=== PATIENT | female | born 1950 | race Caucasian/White ===

== ENCOUNTER → 2017-02-08 | Outpatient (CLI) | payer MEDICARE ==
[2017-02-08 13:15] LABS: Blood Urea Nitrogen 13 mg/dL (7-17); Non-African American GFR(MDRD) >60 (>60 ml/min/1.73 sqM)
--- NOTE | 2017-02-08 13:48 | CT ---
EXAMINATION TYPE: CT soft tissue neck w con DATE OF EXAM: 02/08/2017 1:40 PM COMPARISON: NONE HISTORY: Neck mass, esophagus deviating CT DLP: 754 mGycm Automated exposure control for dose reduction was used. CONTRAST: CT scan of the neck is performed following with IV Contrast, patient injected with 100 mL of Omnipaqu e 300. Axial images are obtained, coronal and sagittal reformatted images are reviewed. FINDINGS: There are emphysematous changes within the lungs. Visualized intracranial structures appear normal. The paranasal sinuses and mastoids appear clear. Vertebral body height and alignment remain normal. Atlantoaxial relationships are normal. There is no significant degenerative change. There is no obvious protrusion. The major salivary glands are unremarkable. The parapharyngeal, oropharyngeal and laryngeal soft tissues are normal. There is a 4.4 x 3.3 x 2.9 cm left-sided thyroid mass which is heterogenous. This is displacing the t rachea towards the right. The left side of the thyroid is also mildly heterogenous. There is no significant cervical or supraclavicular adenopathy. IMPRESSION: 1. Large left left-sided thyroid nodule with heterogenous right lobe of the thyroid. Thyroid ultrasou nd would BE suggested. 2. Mild emphysematous changes within the lungs.
== END | disposition home or self-care (01) ==
LOC: RADCTMAIN 12:36
PROVIDERS: ATTEND Internal Medicine
DX: E04.1 Nontoxic single thyroid nodule (principal)
CPT/HCPCS: 82565; 84520; 70491; 36415; Q9967

== ENCOUNTER → 2018-07-11 | Outpatient (CLI) | payer MEDICARE ==
--- NOTE | 2018-07-12 12:09 | MM ---
Reason for exam: screening (asymptomatic). Last mammogram was performed 2 years and 7 months ago. History: Patient is postmenopausal. Family history of breast cancer in aunt. Took estrogen for 3 years. Physical Findings: A clinical breast exam by your physician is recommended on an annual basis and results should be correlated with mammographic findings. MG 3D Screening Mammo W/Cad Bilateral CC and MLO view(s) were taken. Prior study comparison: December 20, 2015, bilateral MG screening mammo w CAD. September 18, 2013, bilateral digital screening mammo w/CAD. The breast tissue is heterogeneously dense. This may lower the sensitivity of mammography. No suspicious abnormality. No significant changes when compared with prior studies. ASSESSMENT: Negative, BI-RAD 1 RECOMMENDATION: Routine screening mammogram of both breasts in 1 year.
== END | disposition home or self-care (01) ==
LOC: RADMAMWWP 16:32
PROVIDERS: ATTEND Internal Medicine
DX: Z12.31 Encounter for screening mammogram for malignant neoplasm of breast (principal)
CPT/HCPCS: 77063; 77067

== ENCOUNTER 2019-03-02 15:09 | Observation (INO) | payer MEDICARE ==
[2019-03-02 15:14] VITALS: RESP 18
[2019-03-02] MEDS ORDERED: MECLIZINE 12.5 MG TAB PO STA (15:23)
[2019-03-02] MEDS ORDERED: ACETAMINOPHEN TAB 500 MG TAB PO STA (15:23)
--- NOTE | 2019-03-02 15:27 | ED ---
Head Injury HPI - General Chief complaint: Head Injury Stated complaint: Fall/head injury Time Seen by Provider: 03/02/19 15:16 Source: patient, RN notes reviewed, old records reviewed Mode of arrival: ambulatory Limitations: no limitations - History of Present Illness Initial comments: This is a 68-year-old female presents emergency department today after tripping over a hose and table on her porch. She fell back striking her head on the cement. Patient states that she has a large swelling over the posterior scalp. Patient states that she also had her left elbow but report no pain with any range of motion. Patient reports that today she feels dizzy, light is making her head feel worse. She does not have any Motrin or Tylenol. She is on a daily baby aspirin. Patient has history of cardiac stenting. She is a former emergency room RN. - Related Data Allergies/Adverse reactions: Allergies Allergy/AdvReac Type Severity Reaction Status Date / Time omeprazole [From Prilosec] Allergy Rash/Hives Verified 03/02/19 15:15 Sulfa (Sulfonamide Allergy Rash/Hives Verified 03/02/19 15:15 Antibiotics) Review of Systems ROS Statement: Those systems with pertinent positive or pertinent negative responses have been documented in the HPI. ROS Other: All systems not noted in ROS Statement are negative. Past Medical History Past Medical History: Diabetes Mellitus, Hyperlipidemia, Hypertension History of Any Multi-Drug Resistant Organisms: None Reported Past Surgical History: Heart Catheterization With Stent, Hysterectomy Past Psychological History: No Psychological Hx Reported Smoking Status: Never smoker Past Alcohol Use History: None Reported Past Drug Use History: None Reported General Exam - General Exam Comments Initial Comments: 68-year-old female. Alert and oriented 3. Has her head covered with Tylenol and ice over her scalp. Limitations: no limitations General appearance: alert, in no apparent distress Head exam: Present: normocephalic, normal inspection. Absent: atraumatic (abrasion and a large hematoma over the posterior scalp.) Eye exam: Present: normal appearance, PERRL, EOMI, nystagmus (over lateral left gaze). Absent: scleral icterus, conjunctival injection, periorbital swelling ENT exam: Present: normal exam, mucous membranes moist Neck exam: Present: normal inspection. Absent: tenderness, meningismus, lymphadenopathy Respiratory exam: Present: normal lung sounds bilaterally. Absent: respiratory distress, wheezes, rales, rhonchi, stridor Cardiovascular Exam: Present: regular rate, normal rhythm, normal heart sounds. Absent: systolic murmur, diastolic murmur, rubs, gallop, clicks GI/Abdominal exam: Present: soft, normal bowel sounds. Absent: distended, tenderness, guarding, rebound, rigid Extremities exam: Present: normal inspection, full ROM, normal capillary refill. Absent: tenderness, pedal edema, joint swelling, calf tenderness Back exam: Present: normal inspection Neurological exam: Present: alert Psychiatric exam: Present: normal affect, normal mood Skin exam: Present: warm Course Vital Signs 03/02/19 03/02/19 15:10 17:10 Temperature 97.7 F Pulse Rate 83 70 Respiratory 18 18 Rate Blood Pressure 162/86 135/61 O2 Sat by Pulse 98 97 Oximetry Medical Decision Making - Medical Decision Making Patient is a 68-year-old female who presents emergency department today for evaluation for head injury. Patient was at a sitting position tripped, and fell backward hitting her head on cement. She has a significant occipital hematoma. She would've nausea and significant dizziness. I attempted to help with patient's concussion-like symptoms with meclizine, Reglan and Benadryl. Patient continues to be significantly dizzy and nauseated postconcussion. Her CT of the brain was negative for any acute cranial process. Patient case discussed with Dr. Sparks who agrees to admit the Patient for intractable vertigo, concussion-like symptoms after head injury. With consult to neurology in the morning. Patient is a former RN and agrees to tthis plan. - Radiology Data Radiology results: report reviewed Negative computed tomography scan of the brain. Occipital scalp hematoma. Minor junk changes in the cervical spine,and fracture. Disposition Clinical Impression: Head injury, Concussion, Dizziness Disposition: ADMITTED IP TO THIS [facility] Condition: Good Is patient prescribed a controlled substance at d/c from ED?: No Referrals: Ray Wan MD [Primary Care Provider] - 1-2 days Time of Disposition: 18:05
--- NOTE | 2019-03-02 15:49 | CT ---
EXAMINATION TYPE: CT brain nel garcia DATE OF EXAM: 03/02/2019 COMPARISON: None HISTORY: Fall with posterior head injury CT DLP: 1342.4 mGycm Automated exposure control for dose reduction was used. TECHNIQUE: CT scan of the head and cervical spine are performed without contrast. FINDINGS: Ventricles have normal size. There is no mass effect nor midline shift. There is no sign of intracranial hemorrhage. The calvarium is intact. There is left occipital scalp hematoma. Cervical vertebra have normal alignment. Posterior elements are intact. There is minor spurring of th e endplates. Facet joints are intact skull base is intact. There is no evidence of cervical spine fra cture. IMPRESSION: Negative CT scan of the brain. Occipital scalp hematoma. Minor degenerative changes in the cervical spine. No fracture.
[2019-03-02] MEDS ORDERED: diphenhydrAMINE 25 MG CAP PO STA (16:33)
[2019-03-02] MEDS ORDERED: METOCLOPRAMIDE 10 MG TAB PO STA (16:33)
[2019-03-02] MEDS ORDERED: KETOROLAC 30 MG/ML 1 ML VIAL IVP PRN ×2 (18:08→18:15)
[2019-03-02] MEDS ORDERED: ACETAMINOPHEN TAB 325 MG TAB PO PRN (18:08)
[2019-03-02] MEDS ORDERED: PROCHLORPERAZINE 5 MG TAB PO PRN (18:08)
[2019-03-02] MEDS ORDERED: IBUPROFEN 400 MG TAB PO PRN (18:08)
[2019-03-02] MEDS ORDERED: NALOXONE 0.4 MG/ML 1 ML VIAL IV PRN (18:08)
[2019-03-02 18:46] LABS: Basophils # (A) 0.1 k/uL (0-0.2); Basophils % (A) 1 %; Eosinophils # (A) 0.2 k/uL (0-0.7); Eosinophils % (A) 2 %; HCT 33.1 % (34.0-46.0); HGB 10.8 gm/dL (11.4-16.0); Lymphocytes # (A) 3.8 k/uL (1.0-4.8); Lymphocytes % (A) 31 %; MCHC 32.5 g/dL (31.0-37.0); MCV 83.1 fL (80.0-100.0); Mean Platelet Volume 7.2; Monocytes # (A) 0.6 k/uL (0-1.0); Monocytes % (A) 5 %; Neutrophils # (A) 7.5 k/uL (1.3-7.7); Neutrophils % (A) 61 %; Platelet Count 325 k/uL (150-450); RBC 3.98 m/uL (3.80-5.40); RDW 14.8 % (11.5-15.5); WBC 12.5 k/uL (3.8-10.6)
[2019-03-02 18:57] LABS: African American GFR (CKD) >90 (>60 ml/min/1.73 sqM); Anion Gap 10 mmol/L; Blood Urea Nitrogen 16 mg/dL (7-17); Calcium 9.3 mg/dL (8.4-10.2); Carbon Dioxide 28 mmol/L (22-30); Chloride 98 mmol/L (98-107); Glucose 109 mg/dL (74-99); Sodium 136 mmol/L (137-145)
[2019-03-02] MEDS ORDERED: IPRATROPIUM-ALBUTEROL 3 ML NEB INHALATION PRN (20:22)
[2019-03-02] MEDS: FAMOTIDINE 20 MG TAB PO SCH (20:29)
[2019-03-02 20:44] VITALS: BMI 35.2
[2019-03-02] MEDS: SODIUM CHLORIDE 0.9% 1,000 ML IV SCH (20:44)
[2019-03-02] MEDS ORDERED: ACETAMINOPHEN TAB 500 MG TAB PO PRN (21:27)
[2019-03-02] MEDS ORDERED: FAMOTIDINE 20 MG TAB PO SCH (21:30)
--- NOTE | 2019-03-02 22:51 | P.HPIM ---
History of Present Illness H&P Date: 03/02/19 Chief Complaint: Head injury 68-year-old female with history of diabetes history of CAD status post stent of years ago hypertension. Patient presented to the hospital after sustaining a fall at home. She reports she was active all day doing yard work and small things around the house. When she eventually tripped over a hose fell and hit her head on a table she thinks she might have lost consciousness for a few seconds very brief of any. Denies any vomiting but felt very weak after the fall couldn't get up. Denies any preceding symptoms to the fall denies any dizziness lightheadedness denies any shortness of breath chest pain or palpitations. She denies any history of falling. Family members heard thought and came to the rescue they helped her up and insisted on going to the hospital to get evaluated she was brought to the hospital by private car. In the ED CT of the head was unremarkable for any intracranial lesions, and showed subcutaneous hematoma Labs showed leukocytosis without focus of infection, mild anemia of 10.8 patient denies any GI bleeding. Patient currently evaluated on the medical floor she feels that she is back to her baseline slightly lightheaded denies any focal neurologic deficit at this point denies any nausea vomiting chest pain trouble breathing abdominal pain Review of Systems Pertinent positives as noted in HPI. All other systems were reviewed and are negative Past Medical History Past Medical History: Diabetes Mellitus, Fibromyalgia, GERD/Reflux, Hyperlipidemia, Hypertension History of Any Multi-Drug Resistant Organisms: None Reported Past Surgical History: Heart Catheterization With Stent, Hysterectomy Past Anesthesia/Blood Transfusion Reactions: No Reported Reaction Date of Last Stent Placement:: 2006 Past Psychological History: No Psychological Hx Reported Smoking Status: Never smoker Past Alcohol Use History: None Reported Past Drug Use History: None Reported - Past Family History Mother Additional Family Medical History / Comment(s): passed at age 57 dx with brain tumor Father Family Medical History: Coronary Artery Disease (CAD) Additional Family Medical History / Comment(s): at 63 Medications and Allergies Home Medications Medication Instructions Recorded Confirmed Type Acetaminophen Tab [Tylenol] 500 mg PO Q8HR PRN 03/02/19 03/02/19 History Aspirin [[place] Aspirin EC] 81 mg PO DAILY 03/02/19 03/02/19 History DULoxetine HCL [Cymbalta] 30 mg PO DAILY 03/02/19 03/02/19 History Enalapril/Hydrochlorothiazide 1 tab PO DAILY 03/02/19 03/02/19 History [Enalapril-Hctz 10-25 mg Tablet] Famotidine [Pepcid] 20 mg PO HS 03/02/19 03/02/19 History Lansoprazole [Prevacid] 30 mg PO DAILY 03/02/19 03/02/19 History Metoprolol Succinate (ER) [Toprol 100 mg PO DAILY 03/02/19 03/02/19 History XL] Potassium Chloride ER [K-Dur 10] 10 meq PO DAILY 03/02/19 03/02/19 History Rosuvastatin [Crestor] 20 mg PO HS 03/02/19 03/02/19 History metFORMIN HCL [Glucophage] 500 mg PO DAILY 03/02/19 03/02/19 History traMADol HCL [Ultram] 1 - 2 tab PO TID 03/02/19 03/02/19 History Allergies Allergy/AdvReac Type Severity Reaction Status Date / Time omeprazole [From Prilosec] Allergy Rash/Hives Verified 03/02/19 19:06 Sulfa (Sulfonamide Allergy Rash/Hives Verified 03/02/19 19:06 Antibiotics) Physical Exam Vitals: Vital Signs Temp Pulse Pulse Resp BP BP Pulse Ox 03/02/19 20:25 98.0 F 67 18 148/80 98 03/02/19 19:30 98.5 F 64 18 125/61 98 03/02/19 17:10 70 18 135/61 97 03/02/19 15:10 97.7 F 83 18 162/86 98 Intake and Output 03/02/19 03/02/19 03/02/19 06:59 14:59 22:59 Other: Weight 77.111 kg Constitutional: No acute distress, conversant, pleasant Eyes: Anicteric sclerae, moist conjunctiva, no lid-lag Pupils equal round reactive to light ENMT: NC/AT Oropharynx clear, no erythema, exudates Neck: Supple, FROM, no masses, or JVD No carotid bruits No thyromegaly Lungs: Clear to auscultation Clear to percussion Normal respiratory effort, no accessory muscle use Cardiovascular: Heart regular in rate and rhythm, No murmurs, gallops, or rubs No peripheral edema Abdominal: Soft Nontender, no guarding, rebound or rigidity Abdomen moving with respiration Normoactive bowel sounds No hepatomegaly, No splenomegaly No palpable mass No abdominal wall hernia noted Skin: Normal temperature, tone, texture, turgor No induration No subcutaneous nodules No rash, lesions No ulcers Extremities: No digital cyanosis No clubbing Pedal pulses intact and symmetrical Radial pulses intact and symmetrical No calf tenderness Psychiatric: Alert and oriented to person, place and time Appropriate affect fair judgement Neuro Muscles Strength 5/5 in all 4 extremities Sensation to light touch grossly present throughout Cranial nerves II-XII grossly intact No focal sensory deficits q no nystagmus, Finger-nose intact heel carter intact Lymphatics: no palpable cervical or supraclavicular , or inguinal lymph nodes Results CBC & Chem 7: 03/02/19 18:26 03/02/19 18:26 Labs: Abnormal Lab Results - Last 24 Hours (Table) 03/02/19 03/02/19 Range/Units 18:26 18:26 WBC 12.5 H (3.8-10.6) k/uL Hgb 10.8 L (11.4-16.0) gm/dL Hct 33.1 L (34.0-46.0) % Sodium 136 L (137-145) mmol/L Glucose 109 H (74-99) mg/dL Assessment and Plan Assessment: 68-year-old female with history of hypertension diabetes admitted under observation with anticipated length of stay less than 48 hours due to concussion and dizziness for monitoring neuro exam overnight after sustaining a mechanical fall at home with questionable loss of consciousness due to head injury Plan: Concussion secondary to mechanical fall Dizziness Neuro exam every 2 hours Monitoring overnight under observation CT of the head showed occipital subcutaneous hematoma Vital signs stable Mild anemia Most recent colonoscopy 2-3 years ago with history of precancerous lesion Continue outpatient follow-up Patient denies GI bleeding Leukocytosis mild No fevers vital signs stable No evidence of focal infection Continue to monitor Chronic conditions hospitalized Hypertension resume home meds GERD Fibromyalgia History of CAD status post stent 12 years ago DVT prophylaxis mechanical Surrogate decision-maker: CODE STATUS: No code Discussed with: Patient, ER, Anticipated discharge: Less than [address]: Home A total of 60 minutes was spent on the care of this complex patient more than 50% of the time was spent in counseling and care coordination.
[2019-03-03] MEDS: SODIUM CHLORIDE 0.9% 1,000 ML IV SCH (03:28)
[2019-03-03 07:10] VITALS: BP 132/71; PULSE 72; TEMP 98.4
[2019-03-03 07:21] LABS: Glucose,Whole Blood 112 mg/dL (75-99)
[2019-03-03] MEDS ORDERED: INSULIN ASPART (NovoLOG) 100 UNIT/ML VIAL SQ SCH (07:30)
[2019-03-03] MEDS: FAMOTIDINE 20 MG TAB PO SCH (08:07)
[2019-03-03] MEDS ORDERED: LISINOPRIL 10 MG TAB PO SCH (09:00)
[2019-03-03] MEDS ORDERED: ASPIRIN 81 MG PO SCH (09:00)
[2019-03-03] MEDS ORDERED: DULoxetine HCL 30 MG CAPSULE.DR PO SCH (09:00)
[2019-03-03] MEDS ORDERED: Lansoprazole [Prevacid] 30 MG PO SCH (09:00)
[2019-03-03] MEDS ORDERED: HYDROCHLOROTHIAZIDE 25 MG TAB PO SCH (09:00)
[2019-03-03] MEDS ORDERED: METOPROLOL SUCCINATE (ER) 100 MG TAB.ER.24H PO SCH (09:00)
--- NOTE | 2019-03-03 09:38 | P.PN ---
Progress Note - Text Progress Note Date: 03/03/19 Consult order received from staff. Spoke with primary team Dr. Muir who rounded on patient this am and stated she had a non-focal exam and dizziness was from concussion and that neuro did not need to see. Recommend outpatient follow- up on possible post-concussive syndrome. Please call with any questions.
--- NOTE | 2019-03-03 09:53 | P.DS ---
Providers Date of admission: 03/02/19 18:14 Expected date of discharge: 03/03/19 Attending physician: Lilia Muir DO Primary care physician: Ray Wan Hospital Course: Discharge Diagnosis: Concussion Dizziness secondary to above Mild anemia GERD Hypertension Dyslipidemia Diabetes mellitus Coronary artery disease Hospital Course: Patient is a 68-year-old female with a past medical history of diabetes, coronary artery disease status post stenting, GERD, hypertension, and dyslipidemia who presented to the ER after a fall with trauma to her head. She blew she may have lost consciousness for a few seconds after striking her head on a table. In the ER she felt very weak and could not get up. She is having dizziness with persistent nausea and vomiting. Despite maximal doses of medications patient was still unable to ambulate on her own. There is concern for severe concussion she was subsequently admitted for observation. She underwent a CT of the brain which showed no acute process and a CT of the head and neck which was unrevealing for fracture. She was therefore admitted for further observation. Her neuro exam remained normal. By the morning after admission her nausea had resolved, her dizziness is greatly improved and only lasted for a few seconds with change in position. Patient seen and examined at bedside. Dizziness much improved, and nausea resolved, no other complaints currently. Vital signs reviewed and stable. General: non toxic, no distress, appears at stated age Derm: warm, dry Head: atraumatic, normocephalic, swelling over the left posterior scalp Eyes: EOMI, no lid lag, anicteric sclera Mouth: no lip lesion, mucus membranes moist Cardiovascular: S1S2 reg, no murmur, positive posterior tibial pulse bilateral, Lungs: CTA bilateral, no rhonchi, no rales , no accessory muscle use Abdominal: soft, nontender to palpation, no guarding, no appreciable organomegaly Ext: no gross muscle atrophy, no edema, no contractures Neuro: CN II-XI intact, muscle strength 5 out of 5 in all 4 extremities, finger to nose within normal limits, [id number] with no normal limits, light touch intact in all 4 extremities, able to ambulate without difficulty, no nystagmus, no tremors Psych: Alert, oriented, appropriate affect A total of 25 minutes of time were spent preparing this complex discharge summary . Pertinent Studies: CT head and neck: Negative CT of the brain, occipital scalp hematoma Patient Condition at Discharge: Good Plan - Discharge Summary New Discharge Prescriptions: Continue DULoxetine HCL [Cymbalta] 30 mg PO DAILY Aspirin [[place] Aspirin EC] 81 mg PO DAILY Acetaminophen Tab [Tylenol] 500 mg PO Q8HR PRN PRN Reason: Pain metFORMIN HCL [Glucophage] 500 mg PO DAILY Rosuvastatin [Crestor] 20 mg PO HS Metoprolol Succinate (ER) [Toprol XL] 100 mg PO DAILY Lansoprazole [Prevacid] 30 mg PO DAILY Famotidine [Pepcid] 20 mg PO HS Potassium Chloride ER [K-Dur 10] 10 meq PO DAILY Enalapril/Hydrochlorothiazide [Enalapril-Hctz 10-25 mg Tablet] 1 tab PO DAILY traMADol HCL [Ultram] 1 - 2 tab PO TID Discharge Medication List Acetaminophen Tab [Tylenol] 500 mg PO Q8HR PRN 03/02/19 [History] Aspirin [[place] Aspirin EC] 81 mg PO DAILY 03/02/19 [History] DULoxetine HCL [Cymbalta] 30 mg PO DAILY 03/02/19 [History] Enalapril/Hydrochlorothiazide [Enalapril-Hctz 10-25 mg Tablet] 1 tab PO DAILY 03/02/19 [History] Famotidine [Pepcid] 20 mg PO HS 03/02/19 [History] Lansoprazole [Prevacid] 30 mg PO DAILY 03/02/19 [History] Metoprolol Succinate (ER) [Toprol XL] 100 mg PO DAILY 03/02/19 [History] Potassium Chloride ER [K-Dur 10] 10 meq PO DAILY 03/02/19 [History] Rosuvastatin [Crestor] 20 mg PO HS 03/02/19 [History] metFORMIN HCL [Glucophage] 500 mg PO DAILY 03/02/19 [History] traMADol HCL [Ultram] 1 - 2 tab PO TID 03/02/19 [History] Follow up Appointment(s)/Referral(s): Ray Wan MD [Primary Care Provider] - 1-2 days Patient Instructions/Handouts: Concussion (DC), Concussion (GEN), Post Concussion Syndrome (ED), Post Concussion Syndrome (GEN) Activity/Diet/Wound Care/Special Instructions: Diet: carb consistent Activity: as tolerated
[2019-03-03] MEDS ORDERED: ATORVASTATIN 40 MG TAB PO SCH (21:00)
== END 2019-03-03 10:24 | disposition home or self-care (01) ==
LOC: EC 15:09 → 4MS4W 18:14
PROVIDERS: ADMIT Internal Medicine; ATTEND Internal Medicine
DX: S06.0X9A Concussion with loss of consciousness of unspecified duration, initial encounter (principal); S00.03XA Contusion of scalp, initial encounter; D64.9 Anemia, unspecified; D72.829 Elevated white blood cell count, unspecified; I10 Essential (primary) hypertension; I25.10 Atherosclerotic heart disease of native coronary artery without angina pectoris; K21.9 Gastro-esophageal reflux disease without esophagitis; M79.7 Fibromyalgia; E78.5 Hyperlipidemia, unspecified; E11.9 Type 2 diabetes mellitus without complications; Z79.82 Long term (current) use of aspirin; Z79.84 Long term (current) use of oral hypoglycemic drugs; Z79.891 Long term (current) use of opiate analgesic; Z79.899 Other long term (current) drug therapy; Z90.710 Acquired absence of both cervix and uterus; Z88.2 Allergy status to sulfonamides; Z88.8 Allergy status to other drugs, medicaments and biological substances; Z95.5 Presence of coronary angioplasty implant and graft; Z87.19 Personal history of other diseases of the digestive system; Y92.008 Other place in unspecified non-institutional (private) residence as the place of occurrence of the external cause; Z82.49 Family history of ischemic heart disease and other diseases of the circulatory system; W01.198A Fall on same level from slipping, tripping and stumbling with subsequent striking against other object, initial encounter
CPT/HCPCS: 96361; 96374; 99285; 36415; 80048; 85025; 72125; 70450; G0378 ×2; J1885

== ENCOUNTER 2020-03-27 11:09 | Emergency (ER) | payer MEDICARE ==
[2020-03-27] MEDS ORDERED: LEVOFLOXACIN 750 MG TAB PO STA (11:50)
--- NOTE | 2020-03-27 12:05 | ED ---
Fever HPI - General Chief Complaint: Fever Stated Complaint: fever/body aches Time Seen by Provider: 03/27/20 11:29 Source: patient, RN notes reviewed Mode of arrival: ambulatory Limitations: no limitations - History of Present Illness Initial Comments: This is a 69-year-old female who presents with complaints of a fever since yesterday waxing and waning also with complaints of a frontal headache which is consistent with previous episodes of sinusitis. She's had body aches. No cough no phlegm production no overt rhinorrhea she is isn't plugged up ears she states has sore throat for 1 day. No dysuria no other complaints of other modifying factors. MD Complaint: fever - Related Data Home Medications Medication Instructions Recorded Confirmed Acetaminophen Tab [Tylenol] 500 mg PO Q8HR PRN 03/02/19 03/02/19 Aspirin [[place] Aspirin EC] 81 mg PO DAILY 03/02/19 03/02/19 DULoxetine HCL [Cymbalta] 30 mg PO DAILY 03/02/19 03/02/19 Enalapril/Hydrochlorothiazide 1 tab PO DAILY 03/02/19 03/02/19 [Enalapril/Hydrochlorothiazide 10-25 mg Tablet] Famotidine [Pepcid] 20 mg PO HS 03/02/19 03/02/19 Lansoprazole [Prevacid] 30 mg PO DAILY 03/02/19 03/02/19 Metoprolol Succinate (ER) [Toprol 100 mg PO DAILY 03/02/19 03/02/19 XL] Potassium Chloride ER [K-Dur 10] 10 meq PO DAILY 03/02/19 03/02/19 Rosuvastatin [Crestor] 20 mg PO HS 03/02/19 03/02/19 metFORMIN HCL [Glucophage] 500 mg PO DAILY 03/02/19 03/02/19 traMADol HCL [Ultram] 1 - 2 tab PO TID 03/02/19 03/02/19 Previous Rx's Medication Instructions Recorded Levofloxacin [Levaquin] 500 mg PO DAILY 3 Days #9 tab 03/27/20 Allergies Allergy/AdvReac Type Severity Reaction Status Date / Time omeprazole [From Prilosec] Allergy Rash/Hives Verified 03/27/20 11:14 Sulfa (Sulfonamide Allergy Rash/Hives Verified 03/27/20 11:14 Antibiotics) Review of Systems ROS Statement: Those systems with pertinent positive or pertinent negative responses have been documented in the HPI. ROS Other: All systems not noted in ROS Statement are negative. Past Medical History Past Medical History: Diabetes Mellitus, Fibromyalgia, GERD/Reflux, Hyperlipidemia, Hypertension History of Any Multi-Drug Resistant Organisms: None Reported Past Surgical History: Heart Catheterization With Stent, Hysterectomy Past Anesthesia/Blood Transfusion Reactions: No Reported Reaction Date of Last Stent Placement:: 2006 Past Psychological History: No Psychological Hx Reported Past Alcohol Use History: None Reported Past Drug Use History: None Reported - Past Family History Mother Additional Family Medical History / Comment(s): passed at age 57 dx with brain tumor Father Family Medical History: Coronary Artery Disease (CAD) Additional Family Medical History / Comment(s): at 63 General Exam - General Exam Comments Initial Comments: This is a well-developed alert oriented 3 female Limitations: no limitations General appearance: alert, in no apparent distress Head exam: Present: atraumatic, normocephalic, normal inspection Eye exam: Present: normal appearance, PERRL, EOMI. Absent: scleral icterus, conjunctival injection, periorbital swelling ENT exam: Present: mucous membranes moist, other (Boggy nasal mucosa with some dullness of the TMs.) Neck exam: Present: normal inspection. Absent: tenderness, meningismus, lymphadenopathy Respiratory exam: Present: normal lung sounds bilaterally. Absent: respiratory distress, wheezes, rales, rhonchi, stridor Cardiovascular Exam: Present: regular rate, normal rhythm, normal heart sounds. Absent: systolic murmur, diastolic murmur, rubs, gallop, clicks GI/Abdominal exam: Absent: distended, tenderness, guarding, rebound, rigid Extremities exam: Present: normal inspection, full ROM, normal capillary refill. Absent: tenderness, pedal edema, joint swelling, calf tenderness Back exam: Present: normal inspection Neurological exam: Present: alert, oriented X3, CN II-XII intact Psychiatric exam: Present: normal affect, normal mood Skin exam: Present: warm, intact, normal color, diaphoretic. Absent: rash Course Vital Signs 03/27/20 11:12 Temperature 99.8 F H Pulse Rate 100 Respiratory 18 Rate Blood Pressure 161/76 O2 Sat by Pulse 94 L Oximetry Medical Decision Making - Medical Decision Making We did discuss various options. Patient would like to be discharged after swabs are sent. The clinical presentation consistent with a sinusitis she will be placed on antibiotics as worked for her in the past. She will follow-up with her portal system for results of the other testing. Disposition Clinical Impression: Sinusitis chronic, frontal, Febrile illness, acute Disposition: HOME SELF-CARE Condition: Good Instructions (If sedation given, give patient instructions): Fever in Adults (ED), Sinusitis (ED) Prescriptions: Levofloxacin [Levaquin] 500 mg PO DAILY 3 Days #9 tab Is patient prescribed a controlled substance at d/c from ED?: No Referrals: Ray Wan MD [Primary Care Provider] - 1-2 days
[2020-03-27 12:45] VITALS: BP 129/56; PULSE 90; RESP 19; TEMP 98
== END 2020-03-27 12:43 | disposition home or self-care (01) ==
LOC: EC 11:09
DX: Z20.828 Contact with and (suspected) exposure to other viral communicable diseases (principal); J32.1 Chronic frontal sinusitis; R50.9 Fever, unspecified; M79.7 Fibromyalgia; I10 Essential (primary) hypertension; K21.9 Gastro-esophageal reflux disease without esophagitis; E78.5 Hyperlipidemia, unspecified; E11.9 Type 2 diabetes mellitus without complications; Z79.82 Long term (current) use of aspirin; Z79.84 Long term (current) use of oral hypoglycemic drugs; Z79.899 Other long term (current) drug therapy; Z88.2 Allergy status to sulfonamides; Z88.8 Allergy status to other drugs, medicaments and biological substances
CPT/HCPCS: 87502; 99283; U0003

== ENCOUNTER → 2021-02-15 | Outpatient (CLI) | payer MEDICARE ==
--- NOTE | 2021-02-16 07:50 | BD ---
EXAMINATION TYPE: Axial Bone Density DATE OF EXAM: 02/15/2021 COMPARISON: Prior DEXA bone scan December 20, 2015 CLINICAL HISTORY: Postmenopausal female Height: 4 FT 11 1/2 IN Weight: 165 FRAX RISK QUESTIONS: Alcohol (3 or more units per day): NO Family History (Parent hip fracture): NO Glucocorticoids (More than 3mos): NO (Ex: prednisone, prednisolone, methylprednisolone, dexamethasone, and hydrocortisone). History of Fracture in Adulthood: NO Secondary Osteoporosis: 1. Type 1 Diabetes: NO 2. Hyperthyroidism: NO 3. Menopause before 45: NO 4. Malnutrition: NO 5. Chronic liver disease: NO Rheumatoid Arthritis: NO Current Tobacco Use: NO RISK FACTORS HISTORY OF: Surgery to Spine/Hip(right/left)/Wrist (right/left): NO Family History of Osteoporosis: YES Active: YES Diet low in dairy products/other sources of calcium: NO Postmenopausal woman: AGE 50'S Take estrogen and/or progesterone medications: NONE NOW Lost more than 2 inches in height since high school: NO MEDICATIONS: Additional Medications: LANSOPRAZOLE, DULOXETINE, METFORMIN, POTASSIUM, METOPROLOL, ENALAPRIL,ROSUVAS TATIN, FERROUS SULFATE, ASPIRIN, Additional History: EXAM MEASUREMENTS: Bone mineral densitometry was performed using the [employer] System. Bone mineral density as measured about the Lumbar spine is: ----- L1-L4(G/cm2): 1.326 T Score Values are as follows: ----- L2: 1.1 ----- L3: 0.7 ----- L4: 1.7 ----- L1-L4: 1.2 Bone mineral density has: INCREASED 4.4 % since study of: 2015 Bone mineral density about the R hip (g/cm2): 0.930 Bone mineral density about the L hip (g/cm2): 0.952 T Score values are as follows: -----R Neck: -0.8 -----L Neck: -0.6 -----R Total: 0.3 -----L Total: 0.6 Bone mineral density has: INCREASED 0.2 % since study of: 2015 IMPRESSION: Normal (Values between +1 and -1 indicate normal bone mass). Consider repeating this study in 5 year s or sooner if there is some new clinical indication. NOTE: T-SCORE=SD OF THE YOUNG ADULT MEAN.
--- NOTE | 2021-02-17 08:41 | MM ---
Reason for exam: screening (asymptomatic). Last mammogram was performed 2 years and 7 months ago. History: Patient is postmenopausal. Family history of breast cancer in aunt. Took estrogen for 3 years. Physical Findings: A clinical breast exam by your physician is recommended on an annual basis and results should be correlated with mammographic findings. MG Screening Mammo w CAD Bilateral CC and MLO view(s) were taken. Prior study comparison: July 11, 2018, bilateral MG 3d screening mammo w/cad. December 20, 2015, bilateral MG screening mammo w CAD. The breast tissue is heterogeneously dense. This may lower the sensitivity of mammography. No significant changes when compared with prior studies. ASSESSMENT: Benign, BI-RAD 2 RECOMMENDATION: Routine screening mammogram of both breasts in 1 year.
== END | disposition home or self-care (01) ==
LOC: RADMAMWWP 15:15
PROVIDERS: ATTEND Internal Medicine
DX: Z12.31 Encounter for screening mammogram for malignant neoplasm of breast (principal); Z78.0 Asymptomatic menopausal state; Z80.3 Family history of malignant neoplasm of breast
CPT/HCPCS: 77067; 77080

== ENCOUNTER 2021-02-18 07:14 | Day surgery (SDC) | payer MEDICARE ==
[2021-02-16 13:07] VITALS: BMI 30.7
[2021-02-18] MEDS ORDERED: LACTATED RINGERS 1,000 ML IV SCH (07:45)
[2021-02-18 07:48] VITALS: RESP 16; TEMP 98.5
[2021-02-18] MEDS ORDERED: LIDOCAINE 1% (10MG/ML) FOR IV START INTRADERMA ONE (07:55)
[2021-02-18 08:01] LABS: Glucose,Whole Blood 124 mg/dL (75-99)
[2021-02-18] MEDS ORDERED: MIDAZOLAM 2 MG/2 ML VIAL ONE (08:19)
[2021-02-18] MEDS ORDERED: PROPOFOL 10 MG/ML 20 ML VIAL IV ONE (08:19)
--- NOTE | 2021-02-18 08:41 | P.PCN ---
Date of Procedure: 02/18/21 Procedure(s) Performed: Brief history: Patient is a pleasant 62-year-old white female scheduled for an elective upper endoscopy as well as colonoscopy as a part of evaluation of I deficiency anemia. She denies any GI symptoms. Procedure performed: Esophagogastroduodenoscopy with biopsy Colonoscopy Preoperative diagnosis: Iron deficiency anemia Anesthesia: [facility] Procedure: After informed consent was obtained from the patient was brought into the endoscopy unit and IV sedation was administered by anesthesia under continuous monitoring. Initially upper endoscopy was done. The Olympus GF 160 video endoscope was inserted inserted into the mouth and esophagus intubated without any difficulty and was gradually advanced into the stomach and duodenum and carefully examined. The bulb and second part of the duodenum appeared normal. Biopsies were done from the duodenum to rule out celiac disease. The scope was then withdrawn into the stomach adequately insufflated with air and upon careful examination the antrum had mild diffuse gastritis and biopsies were done from this area. The body, cardia and fundus appeared normal. The scope was then withdrawn into the esophagus. The GE junction was located at 40 cm to the incisors. It appeared regular with no erythema erosions or ulcerations. Rest of the esophagus appeared normal. Patient tolerated the procedure well. At this time the patient continued to remain sedation. Initial digital rectal examination was normal. Olympus CF 160 video colonoscope was then inserted into the rectum and gradually advanced to the cecum without any difficulty. Careful examination was performed as the scope was gradually being withdrawn. The prep was excellent. The cecum, ascending colon, transverse colon, descending colon, sigmoid colon and rectum appeared normal. Retroflexion was performed in the rectum and no lesions were noted. Scattered sigmoid diverticulosis. Patient tolerated the procedure well. Impression: 1. Upper endoscopy revealed mild diffuse antral gastritis but no evidence of esophagitis or peptic ulcer disease 2. Colonoscopy revealed scattered sigmoid diverticulosis but no evidence of colitis or colorectal neoplasia Recommendations: Findings of this examination were discussed with the patient as well her family. She was advised to follow with the biopsy results. She'll start iron supplements and monitor CBC periodically. If she has persistent iron deficiency anemia she may be a candidate for a small bowel capsule endoscopy. She will be seen in office in 6 weeks.
[2021-02-18 09:04] VITALS: BP 138/84; PULSE 68
== END 2021-02-18 09:23 ==
LOC: ORWHC2ENDO 07:14
PROVIDERS: ATTEND Internal Medicine Gastroenterology
DX: K29.50 Unspecified chronic gastritis without bleeding (principal); K57.30 Diverticulosis of large intestine without perforation or abscess without bleeding; D50.9 Iron deficiency anemia, unspecified; I10 Essential (primary) hypertension; E78.5 Hyperlipidemia, unspecified; E11.9 Type 2 diabetes mellitus without complications; M79.7 Fibromyalgia; K21.9 Gastro-esophageal reflux disease without esophagitis; Z79.891 Long term (current) use of opiate analgesic; Z79.899 Other long term (current) drug therapy; Z88.2 Allergy status to sulfonamides; Z88.8 Allergy status to other drugs, medicaments and biological substances
CPT/HCPCS: 88305; 45378; 43239; J2250; J2704

== ENCOUNTER 2024-04-13 13:04 | Observation (INO) | payer MEDICARE ==
[2024-04-13 13:52] LABS: Basophils # (A) 0.1 k/uL (0-0.2); Basophils % (A) 1 %; Eosinophils # (A) 0.2 k/uL (0-0.7); Eosinophils % (A) 2 %; HCT 39.5 % (34.0-46.0); HGB 12.9 gm/dL (11.4-16.0); Lymphocytes # (A) 3.1 k/uL (1.0-4.8); Lymphocytes % (A) 34 %; MCH 28.4 pg (25.0-35.0); MCHC 32.6 g/dL (31.0-37.0); MCV 87.3 fL (80.0-100.0); Mean Platelet Volume 7.7; Monocytes # (A) 0.4 k/uL (0-1.0); Monocytes % (A) 4 %; Neutrophils # (A) 5.3 k/uL (1.3-7.7); Neutrophils % (A) 57 %; Platelet Count 433 k/uL (150-450); RBC 4.53 m/uL (3.80-5.40); WBC 9.3 k/uL (3.8-10.6)
--- NOTE | 2024-04-13 13:59 | XR ---
EXAMINATION TYPE: XR chest 2V DATE OF EXAM: 04/13/2024 1:54 PM CLINICAL INDICATION:Female, 74 years old with history of Chest Pain; [facility] COMPARISON: Chest radiographs from 04/17/2011 TECHNIQUE: XR chest 2V Frontal view of the chest. FINDINGS: Lungs/Pleura: There is no evidence of pleural effusion, focal consolidation, or pneumothorax. Pulmonary vascularity: Unremarkable. Heart/mediastinum: Cardiomediastinal silhouette is unremarkable. Musculoskeletal: No acute osseous pathology. IMPRESSION: No acute cardiopulmonary disease/process.
[2024-04-13 14:00] LABS: Partial Thromboplastin Time 25.1 sec (22.0-30.0); Prothrombin Time 10.7 sec (10.0-12.5)
[2024-04-13 14:04] LABS: ALT 15 U/L (4-34); AST 24 U/L (14-36); African American GFR (CKD) >90 (>60 ml/min/1.73 sqM); Albumin 4.3 g/dL (3.5-5.0); Alkaline Phosphatase 75 U/L (38-126); Anion Gap 11 mmol/L; Blood Urea Nitrogen 10 mg/dL (7-17); Calcium 9.8 mg/dL (8.4-10.2); Carbon Dioxide 25 mmol/L (22-30); Chloride 95 mmol/L (98-107); Glucose 234 mg/dL (74-99); Magnesium 1.4 mg/dL (1.6-2.3); Non-African American GFR(CKD) 89 (>60 ml/min/1.73 sqM); Sodium 131 mmol/L (137-145); Total Bilirubin 0.5 mg/dL (0.2-1.3); Total Protein 7.5 g/dL (6.3-8.2)
--- NOTE | 2024-04-13 15:58 | ED ---
Chest Pain HPI - General Chief Complaint: Chest Pain Stated Complaint: Chest pain Time Seen by Provider: 04/13/24 13:23 Source: patient, RN notes reviewed Mode of arrival: ambulatory Limitations: no limitations - History of Present Illness Initial Comments: 74-year-old female presents emergency department chief complaint of chest pain. Patient states that she developed chest pressure on in which she states she was getting on a plane but decided to not get on the plane as she developed this pressure feeling. States symptoms resolved but she was very fatigued and states that she had on and off symptoms since then. She has had prior cardiac stent in her LAD she does have a history of hypertension hyperlipidemia diabetes she states she became very diaphoretic with this chest pressure she states she felt very lightheaded almost near syncopal. Patient states that she has not missed any of her medications and she is found to be hypertensive today. - Related Data Home Medications Medication Instructions Recorded Confirmed Acetaminophen Tab [Tylenol] 500 mg PO Q8HR PRN 03/02/19 02/18/21 Aspirin [[place] Aspirin EC] 81 mg PO DAILY 03/02/19 02/16/21 DULoxetine HCL [Cymbalta] 30 mg PO DAILY 03/02/19 02/18/21 Enalapril/Hydrochlorothiazide 1 tab PO DAILY 03/02/19 02/16/21 [Enalapril/Hydrochlorothiazide 10-25 mg Tablet] Famotidine [Pepcid] 20 mg PO HS 03/02/19 02/16/21 Lansoprazole [Prevacid] 30 mg PO BID 03/02/19 02/18/21 Metoprolol Succinate (ER) [Toprol 100 mg PO DAILY 03/02/19 02/16/21 XL] Potassium Chloride ER [K-Dur 10] 10 meq PO DAILY 03/02/19 02/16/21 Rosuvastatin [Crestor] 20 mg PO HS 03/02/19 02/16/21 metFORMIN HCL [Glucophage] 500 mg PO BID 03/02/19 02/16/21 traMADol HCL [Ultram] 1 - 2 tab PO TID 03/02/19 02/18/21 Ferrous Sulfate [Iron] 325 mg PO Q48H 02/16/21 02/16/21 Allergies Allergy/AdvReac Type Severity Reaction Status Date / Time omeprazole [From Prilosec] Allergy Rash/Hives Verified 04/13/24 13:14 Sulfa (Sulfonamide Allergy Rash/Hives Verified 04/13/24 13:14 Antibiotics) Review of Systems ROS Statement: Those systems with pertinent positive or pertinent negative responses have been documented in the HPI. ROS Other: All systems not noted in ROS Statement are negative. EKG Findings - EKG Comments: EKG Findings:: EKG performed at 13: 21 sinus rhythm rate of 77 ME 189 QRS 110 QT/QTc 416/448 - EKG Results: EKG: interpreted by JOVI Past Medical History Past Medical History: Diabetes Mellitus, Fibromyalgia, GERD/Reflux, Hyperlipidemia, Hypertension History of Any Multi-Drug Resistant Organisms: None Reported Past Surgical History: Heart Catheterization With Stent, Hysterectomy Past Anesthesia/Blood Transfusion Reactions: No Reported Reaction Date of Last Stent Placement:: 2006 Past Psychological History: No Psychological Hx Reported Smoking Status: Never smoker Past Alcohol Use History: None Reported Past Drug Use History: None Reported - Past Family History Mother Additional Family Medical History / Comment(s): passed at age 57 dx with brain tumor Father Family Medical History: Coronary Artery Disease (CAD) Additional Family Medical History / Comment(s): at 63 General Exam Limitations: no limitations Course Vital Signs 04/13/24 13:10 Temperature 97.8 F Pulse Rate 86 Respiratory 18 Rate Blood Pressure 199/88 O2 Sat by Pulse 98 Oximetry Chest Pain MDM - MDM Was pt. sent in by a medical professional or institution (IDALIA Romero, CHIEF DESIGN DRAFTER, urgent care, hospital, or assisted...) When possible be specific @ -No Did you speak to anyone other than the patient for history (EMS, parent, family, police, friend...)? What history was obtained from this source @ -No Did you review nursing and triage notes (agree or disagree)? Why? @ -I reviewed and agree with nursing and triage notes Were old charts reviewed (outside hosp., previous admission, EMS record, old EKG, old radiological studies, urgent care reports/EKG's, assisted records)? Report findings @ -No old charts were reviewed Differential Diagnosis (chest pain, altered mental status, abdominal pain women, abdominal pain men, vaginal bleeding, weakness, fever, dyspnea, syncope, headache, dizziness, GI bleed, back pain, seizure, CVA, palpatations, mental health, musculoskeletal)? @ -Differential Chest Pain: Stable Angina, Unstable Angina, STEMI, NSTEMI Aortic Dissection, Pneumothorax, Musculoskeletal, Esophageal Spasm GERD, Cholecystitis, Pancreatitis, Zoster, this is not meant to be an all-inclusive list. EKG interpreted by me (3pts min.). @ -As above X-rays interpreted by me (1pt min.). @ -Chest x-ray shows no acute cardiopulmonary process CT interpreted by me (1pt min.). @ -None done U/S interpreted by me (1pt. min.). @ -None done What testing was considered but not performed or refused? (CT, X-rays, U/S, labs)? Why? @ -None What meds were considered but not given or refused? Why? @ -None Did you discuss the management of the patient with other professionals (professionals i.e. , PA, CHIEF DESIGN DRAFTER, lab, RT, psych nurse, elementary school social worker, director medical affairs, teacher, medical scientific officer, case finishing machine adjuster)? Give summary @ -Found physician for admission Was smoking cessation discussed for >3mins.? @ -No Was critical care preformed (if so, how long)? @ -No Were there social determinants of health that impacted care today? How? (Homelessness, low income, unemployed, alcoholism, drug addiction, transportation, low edu. Level, literacy, decrease access to med. care, senior living, rehab)? @ -No Was there de-escalation of care discussed even if they declined (Discuss DNR or withdrawal of care, Hospice)? DNR status @ -No What co-morbidities impacted this encounter? (DM, HTN, Smoking, COPD, CAD, Cancer, CVA, ARF, Chemo, Hep., AIDS, mental health diagnosis, sleep apnea, morbid obesity)? @ -CAD, hyperlipidemia diabetes hypertension Was patient admitted / discharged? Hospital course, mention meds given and route, prescriptions, significant lab abnormalities, going to OR and other pertinent info. @ -Admitted patient presented for chest pain initial troponin is negative patient does have significant history and convincing ACS story. Patient will have repeat cardiac enzymes, echocardiogram, further evaluation and treatment Undiagnosed new problem with uncertain prognosis? @ -No Drug Therapy requiring intensive monitoring for toxicity (Heparin, Nitro, Insulin, Cardizem)? @ -No Were any procedures done? @ -No Diagnosis/symptom? @ -Chest pain Acute, or Chronic, or Acute on Chronic? @ -Acute Uncomplicated (without systemic symptoms) or Complicated (systemic symptoms)? @ -Complicated Side effects of treatment? @ -No Exacerbation, Progression, or Severe Exacerbation? @ -No Poses a threat to life or bodily function? How? (Chest pain, [place], DC, pneumonia, PE, COPD, DKA, ARF, appy, cholecystitis, CVA, Diverticulitis, Homicidal, Suicidal, threat to staff... and all critical care pts) @ -Yes chest pain possible ACS, cardiac arrest Disposition Clinical Impression: Chest pain Disposition: ADMITTED IP TO THIS HOSP Condition: Fair Referrals: Henrik Dunn MD [Primary Care Provider] - 1-2 days Time of Disposition: 15:57
[2024-04-13] MEDS ORDERED: NALOXONE 0.4 MG/ML 1 ML VIAL IVP PRN (17:59)
[2024-04-13] MEDS: MAGNESIUM OXIDE 400 MG TAB PO STA (18:05)
[2024-04-13] MEDS: ASPIRIN 81 MG PO STA (18:06)
--- NOTE | 2024-04-13 18:09 | P.HPIM ---
History of Present Illness H&P Date: 04/13/24 Chief Complaint: Chest pain 74-year-old woman with medical history of hypertension, hyperlipidemia, diabetes type 2, CAD status post PCI 15 years ago to the LAD with angioplasty to left circumflex presenting for evaluation of chest pain. Patient says that starting she started to notice that she was increasingly short of breath with minimal ambulation, she had an episode where small amount of exertion resulted in significant diaphoresis, chest pressure/pain, and her family noted that she was also pale. She was initially scheduled to fly to [place] and was at the airport when this happened, and decided ultimately to go home. Over the last couple days, patient has not felt like herself, has felt more weak than usual, feels like she has had a mental fog, continues to have ongoing chest pressure. Over the last 24 hours she has been taking her blood pressure notes that it is not controlled, notes that last time it was this uncontrolled she was having an RI and required PCI. Her home blood pressure cuff indicated that she had a blood pressure of 200/100. Otherwise, patient denies palpitations, fevers chills, nausea, vomiting, weight gain, lower extremity swelling. In the emergency room, patient was afebrile, 199/88, heart rate 86, 98% on room air. CBC is unremarkable. Basic metabolic panel shows hyponatremia to 131, chloride of 95, otherwise unremarkable. Glucose was 234. Magnesium was 1.4. Troponin was less than 0.012. Liver function tests are unremarkable. Coags were unremarkable. Chest x-ray shows clear parenchyma bilaterally, normal-sized heart, no acute infiltrates or opacities. EKG showed normal sinus rhythm with left axis deviation, poor R wave progression. Patient was loaded with aspirin, and after case was discussed with the emergency room, patient was admitted to observation for ACS rule out. All Systems reviewed and pertinent positives and negatives noted in HPI, all other symptoms are negative Gen: In NAD, non-toxic HEENT: normocephalic, atraumatic, hearing acuity is intant, mucous membranes moist CVS: perfusing all extremities well, no pitting edema, regular rate and rhythm without murmurs Respiratory: symmetric chest expansion, no accessory muscle use, clear to auscultation bilaterally GI: soft, NTTP, ND, : no suprapubic tenderness, no CVA tenderness MSK/Derm: no rashes, cyanosis Neuro: CN II-XII intact, no motor weakness, Psych: cooperative, euthymic mood, judgment and insight is intact Labs and imaging as above Assessment/plan: Chest pain History of CAD -Admit to observation with telemetry -Cardiology was consulted -Echocardiogram -Trend troponins -Risk factors: Lipid panel, A1c, TSH -Aspirin 81 mg daily -Atorvastatin 80 mg daily -Continue home metoprolol 100 mg -Nursing was asked to give 1 sublingual nitroglycerin while in the emergency room given the patient still has 2 out of 10 chest pain at the time my evaluation -Sublingual nitro as needed Hypertensive urgency -Resume home blood pressure medication -Add hydralazine 25 mg 4 times daily as needed for SBP greater than 160 Diabetes type 2 -Hold home metoprolol, initiate low-dose sliding scale insulin Patient is full code Past Medical History Past Medical History: Diabetes Mellitus, Fibromyalgia, GERD/Reflux, Hyperlipidemia, Hypertension History of Any Multi-Drug Resistant Organisms: None Reported Past Surgical History: Heart Catheterization With Stent, Hysterectomy Past Anesthesia/Blood Transfusion Reactions: No Reported Reaction Date of Last Stent Placement:: 2006 Past Psychological History: No Psychological Hx Reported Smoking Status: Never smoker Past Alcohol Use History: None Reported Past Drug Use History: None Reported - Past Family History Mother Additional Family Medical History / Comment(s): passed at age 57 dx with brain tumor Father Family Medical History: Coronary Artery Disease (CAD) Additional Family Medical History / Comment(s): at 63 Medications and Allergies Home Medications Medication Instructions Recorded Confirmed Type Acetaminophen Tab [Tylenol] 500 mg PO Q8HR PRN 03/02/19 02/18/21 History Aspirin [[place] Aspirin EC] 81 mg PO DAILY 03/02/19 02/16/21 History DULoxetine HCL [Cymbalta] 30 mg PO DAILY 03/02/19 02/18/21 History Enalapril/Hydrochlorothiazide 1 tab PO DAILY 03/02/19 02/16/21 History [Enalapril/Hydrochlorothiazide 10-25 mg Tablet] Famotidine [Pepcid] 20 mg PO HS 03/02/19 02/16/21 History Lansoprazole [Prevacid] 30 mg PO BID 03/02/19 02/18/21 History Metoprolol Succinate (ER) [Toprol 100 mg PO DAILY 03/02/19 02/16/21 History XL] Potassium Chloride ER [K-Dur 10] 10 meq PO DAILY 03/02/19 02/16/21 History Rosuvastatin [Crestor] 20 mg PO HS 03/02/19 02/16/21 History metFORMIN HCL [Glucophage] 500 mg PO BID 03/02/19 02/16/21 History traMADol HCL [Ultram] 1 - 2 tab PO TID 03/02/19 02/18/21 History Ferrous Sulfate [Iron] 325 mg PO Q48H 02/16/21 02/16/21 History Allergies Allergy/AdvReac Type Severity Reaction Status Date / Time omeprazole [From Prilosec] Allergy Rash/Hives Verified 04/13/24 13:14 Sulfa (Sulfonamide Allergy Rash/Hives Verified 04/13/24 13:14 Antibiotics) Physical Exam Osteopathic Statement: *. No significant issues noted on an osteopathic structural exam other than those noted in the History and Physical/Consult. Vitals: Vital Signs Temp Pulse Resp BP Pulse Ox 04/13/24 13:10 97.8 F 86 18 199/88 98 Intake and Output 04/13/24 04/13/24 04/13/24 06:59 14:59 22:59 Other: Weight 73.482 kg Results CBC & Chem 7: 04/13/24 13:21 04/13/24 13:21 Labs: Abnormal Lab Results - Last 24 Hours (Table) 04/13/24 Range/Units 13:21 Sodium 131 L (137-145) mmol/L Chloride 95 L (98-107) mmol/L Glucose 234 H (74-99) mg/dL Magnesium 1.4 L (1.6-2.3) mg/dL
[2024-04-13] MEDS: NITROGLYCERIN SL TABS 0.4 MG TAB SUBLINGUAL PRN (18:10)
[2024-04-13] MEDS: ATORVASTATIN 80 MG TAB PO SCH (18:11)
[2024-04-13] MEDS: DULoxetine HCL 30 MG CAPSULE.DR PO SCH (18:11)
[2024-04-13] MEDS: lisinopriL 20 MG TAB PO SCH (18:12)
[2024-04-13] MEDS: METOPROLOL SUCCINATE (ER) 100 MG TAB.ER.24H PO SCH (18:13)
[2024-04-13] MEDS: MAGNESIUM SULFATE-D5W PMX 1 GM in DEXTROSE/WATER 1 100ML.BAG IVPB SCH (21:11)
[2024-04-13] MEDS: traMADol 50 MG TAB PO PRN (21:11)
[2024-04-13 23:45] VITALS: RESP 18
[2024-04-13] MEDS: hydrALAZINE HCL 25 MG TAB PO PRN (23:49)
[2024-04-14 01:45] VITALS: BP 152/66; PULSE 63; TEMP 97.9
[2024-04-14 06:51] LABS: Basophils # (A) 0.1 k/uL (0-0.2); Basophils % (A) 1 %; Eosinophils # (A) 0.1 k/uL (0-0.7); Eosinophils % (A) 1 %; HCT 36.2 % (34.0-46.0); HGB 11.7 gm/dL (11.4-16.0); Lymphocytes # (A) 3.2 k/uL (1.0-4.8); Lymphocytes % (A) 36 %; MCH 28.1 pg (25.0-35.0); MCHC 32.4 g/dL (31.0-37.0); MCV 86.9 fL (80.0-100.0); Mean Platelet Volume 7.7; Monocytes # (A) 0.6 k/uL (0-1.0); Monocytes % (A) 7 %; Neutrophils # (A) 4.8 k/uL (1.3-7.7); Neutrophils % (A) 54 %; Platelet Count 380 k/uL (150-450); RBC 4.17 m/uL (3.80-5.40); RDW 12.9 % (11.5-15.5); WBC 8.9 k/uL (3.8-10.6)
[2024-04-14 07:10] LABS: African American GFR (CKD) >90 (>60 ml/min/1.73 sqM); Anion Gap 6 mmol/L; Blood Urea Nitrogen 8 mg/dL (7-17); Calcium 9.4 mg/dL (8.4-10.2); Carbon Dioxide 29 mmol/L (22-30); Chloride 94 mmol/L (98-107); Glucose 107 mg/dL (74-99); Magnesium 1.7 mg/dL (1.6-2.3); Non-African American GFR(CKD) 89 (>60 ml/min/1.73 sqM); Potassium 3.6 mmol/L (3.5-5.1); Sodium 129 mmol/L (137-145)
[2024-04-14] MEDS ORDERED: INSULIN ASPART (NovoLOG) 100 UNIT/ML VIAL SQ SCH (07:30)
[2024-04-14] MEDS ORDERED: ASPIRIN 81 MG ONE (08:45)
[2024-04-14] MEDS ORDERED: hydroCHLOROthiazide 25 MG TAB ONE (08:45)
[2024-04-14] MEDS ORDERED: ATORVASTATIN 80 MG TAB ONE (08:45)
[2024-04-14] MEDS ORDERED: DULoxetine HCL 30 MG CAPSULE.DR PO ONE (08:45)
[2024-04-14] MEDS ORDERED: hydrALAZINE HCL 25 MG TAB ONE (08:46)
[2024-04-14] MEDS ORDERED: lisinopriL 20 MG TAB ONE ×2 (08:46→13:12)
[2024-04-14] MEDS ORDERED: METOPROLOL SUCCINATE (ER) 100 MG TAB.ER.24H PO ONE (08:46)
[2024-04-14] MEDS ORDERED: traMADol 50 MG TAB ONE (08:47)
[2024-04-14] MEDS ORDERED: hydroCHLOROthiazide 25 MG TAB PO SCH (09:00)
[2024-04-14] MEDS ORDERED: ASPIRIN 81 MG PO SCH (09:00)
[2024-04-14] MEDS ORDERED: ASPIRIN 325 MG TAB PO SCH (09:00)
[2024-04-14 09:29] LABS: Glucose,Whole Blood 156 mg/dL (70-110)
[2024-04-14] MEDS ORDERED: INSULIN ASPART (NovoLOG) 100 UNIT/ML VIAL SQ ONE (09:36)
[2024-04-14] MEDS ORDERED: amLODIPine 5 MG TAB ONE (13:11)
[2024-04-15] MEDS ORDERED: ASPIRIN 81 MG ONE (11:00)
[2024-04-15] MEDS ORDERED: ATORVASTATIN 80 MG TAB ONE (11:00)
[2024-04-15] MEDS ORDERED: lisinopriL 20 MG TAB ONE (11:06)
[2024-04-15] MEDS ORDERED: lisinopriL 10 MG TAB ONE (11:06)
[2024-04-15] MEDS ORDERED: DULoxetine HCL 60 MG CAPSULE.DR PO ONE (11:07)
[2024-04-15 11:18] LABS: Glucose,Whole Blood 175 mg/dL (70-110)
[2024-04-15 12:42] LABS: Glucose,Whole Blood 143 mg/dL (70-110)
[2024-04-15] MEDS ORDERED: traMADol 50 MG TAB ONE (13:28)
== END 2024-04-15 15:10 | disposition home or self-care (01) ==
LOC: EC 13:04 → 6NMEDSUR 16:01
PROVIDERS: ADMIT Student in an Organized Health Care Education/Training Program; ATTEND Student in an Organized Health Care Education/Training Program
DX: R07.89 Other chest pain (principal); I16.0 Hypertensive urgency; I10 Essential (primary) hypertension; E11.9 Type 2 diabetes mellitus without complications; I25.10 Atherosclerotic heart disease of native coronary artery without angina pectoris; E78.5 Hyperlipidemia, unspecified; K21.9 Gastro-esophageal reflux disease without esophagitis; Z95.5 Presence of coronary angioplasty implant and graft; Z79.82 Long term (current) use of aspirin; Z79.899 Other long term (current) drug therapy; Z79.84 Long term (current) use of oral hypoglycemic drugs; Z88.2 Allergy status to sulfonamides; Z82.49 Family history of ischemic heart disease and other diseases of the circulatory system
CPT/HCPCS: 36415; 93005; 80053; 83735; 84484; 85025; 85610; 85730; 71046; J3475; 80048; 80061; 83036; 84443; 93306; 93351; 96365; 96366; 99285

== ENCOUNTER 2025-03-16 06:06 | Day surgery (SDC) | payer MEDICARE ==
[~2025-03-16 06:06] MED LIST: HYDROmorphone 0.5 MG/0.5 ML SYRINGE IVP PRN; LIDOCAINE 1% (10MG/ML) FOR IV START INTRADERMA PRN; MIDAZOLAM 2 MG/2 ML VIAL IV PRN; fentaNYL (PF) 50 MCG/ML 2 ML AMP IVP PRN
[2025-03-16] MEDS: ACETAMINOPHEN TAB 500 MG TAB PO PRN (07:05)
[2025-03-16] MEDS: LACTATED RINGERS 1,000 ML IV SCH (07:06)
[2025-03-16 07:20] LABS: Glucose,Whole Blood 123 mg/dL (70-110)
[2025-03-16] MEDS: ONDANSETRON 4 MG/2 ML VIAL IVP ONE (07:20)
[2025-03-16] MEDS: HEPARIN SODIUM,PORCINE 5,000 UNIT/ML 1 ML VIAL SQ PRN (07:20)
[2025-03-16] MEDS: DEXAMETHASONE SOD PHOSPHATE 4 MG/ML 1 ML VIAL IV ONE (07:20)
[2025-03-16] MEDS: IV FLUID CONTINUATION 1,000 ML IV ONE ×2 (07:28→08:30)
[2025-03-16] MEDS ORDERED: fentaNYL (PF) 50 MCG/ML 2 ML AMP ONE (07:32)
[2025-03-16] MEDS ORDERED: KETOROLAC 30 MG/ML 1 ML VIAL ONE (07:32)
[2025-03-16] MEDS ORDERED: LABETALOL 5 MG/ML VIAL MDV ONE (07:32)
[2025-03-16] MEDS ORDERED: GLYCOPYRROLATE 0.2 MG/ML 2 ML VIAL ONE (07:32)
[2025-03-16] MEDS ORDERED: LIDOCAINE 4% LTA KIT (4 ML) TOPICAL ONE (07:32)
[2025-03-16] MEDS ORDERED: MIDAZOLAM 2 MG/2 ML VIAL ONE (07:32)
[2025-03-16] MEDS ORDERED: LIDOCAINE 1% INJ 10MG/ML (20 ML MDV) ONE (07:32)
[2025-03-16] MEDS ORDERED: ROCURONIUM 10 MG/ML (5 ML VIAL) IV ONE (07:32)
[2025-03-16] MEDS ORDERED: PROPOFOL 10 MG/ML 20 ML VIAL IV ONE (07:32)
[2025-03-16] MEDS ORDERED: NEOSTIGMINE 1 MG/ML 10 ML VIAL ONE (07:32)
[2025-03-16] MEDS ORDERED: SUCCINYLCHOLINE CHLORIDE 200 MG/10 ML VIAL IV ONE (07:32)
[2025-03-16] MEDS: LIDOCAINE 1%-EPI 1:100,000 20 ML VIAL SQ ONE ×2 (07:49→08:04)
--- NOTE | 2025-03-16 07:54 | P.GSHP ---
History of Present Illness H&P Date: 03/16/25 Chief Complaint: Right upper quadrant pain This is 74-year-old female whose had complaints of right upper quadrant pain. Patient was worked up and found to have evidence of cholelithiasis. Patient complains of pain when eating greasy and fried foods. Past Medical History Past Medical History: Cancer, Diabetes Mellitus, Fibromyalgia, GERD/Reflux, Hyperlipidemia, Hypertension, Osteoarthritis (OA) Additional Past Medical History / Comment(s): hx skin ca on scalp, arthritis in hands and feet. chronic gastritis with intermittent abd pain x 10 yrs. EC visit 02/04/25 for severe epigastric pain radiating into chest. pt reports intermittent right upper quad "stabbing" pain since EC visit. History of Any Multi-Drug Resistant Organisms: None Reported Past Surgical History: Heart Catheterization With Stent, Hysterectomy Additional Past Surgical History / Comment(s): colonoscopy, EGD. Past Anesthesia/Blood Transfusion Reactions: No Reported Reaction Date of Last Stent Placement:: 2006 Smoking Status: Never smoker - Past Family History Mother Additional Family Medical History / Comment(s): passed at age 57 dx with brain tumor Father Family Medical History: Coronary Artery Disease (CAD) Additional Family Medical History / Comment(s): at 63 Medications and Allergies Home Medications Medication Instructions Recorded Confirmed Type Aspirin [[place] Aspirin EC] 81 mg PO DAILY 03/02/19 03/11/25 History DULoxetine HCL [Cymbalta] 30 mg PO DAILY 03/02/19 03/11/25 History Famotidine [Pepcid] 20 mg PO HS 03/02/19 03/11/25 History Metoprolol Succinate (ER) [Toprol 100 mg PO DAILY 03/02/19 03/11/25 History XL] Potassium Chloride ER [K-Dur 10] 10 meq PO DAILY 03/02/19 03/11/25 History Rosuvastatin [Crestor] 20 mg PO HS 03/02/19 03/11/25 History traMADol HCL [Ultram] 100 mg PO TID PRN 03/02/19 03/11/25 History Acetaminophen [Tylenol 8 Hour] 650 mg PO Q8H PRN 04/13/24 03/11/25 History Enalapril [Vasotec] 10 mg PO DAILY 04/13/24 03/11/25 History hydroCHLOROthiazide [Hydrodiuril] 25 mg PO DAILY 04/13/24 03/11/25 History metFORMIN HCL ER [Glucophage XR] 500 mg PO BID 04/13/24 03/11/25 History Magnesium Oxide [Magnesium] 500 mg PO DAILY 02/17/25 03/11/25 History Vonoprazan Fumarate [Voquezna] 10 mg PO DAILY 02/17/25 03/11/25 History amLODIPine [Norvasc] 5 mg PO DAILY 02/17/25 03/11/25 History Allergies Allergy/AdvReac Type Severity Reaction Status Date / Time omeprazole [From Prilosec] Allergy Rash/Hives Verified 03/16/25 06:47 Sulfa (Sulfonamide Allergy Rash/Hives Verified 03/16/25 06:47 Antibiotics) atorvastatin [From Lipitor] AdvReac Severe Cramping Verified 03/16/25 06:47 Surgical - Exam Vital Signs Temp Pulse Resp BP Pulse Ox 98.1 F 60 19 132/68 97 03/16/25 06:45 03/16/25 06:45 03/16/25 06:45 03/16/25 06:45 03/16/25 06:45 - General well developed, well nourished, no distress - Eyes PERRL - ENT normal pinna - Neck no masses - Respiratory normal expansion - Cardiovascular Rhythm: regular - Abdomen Abdomen: soft, non tender Results - Labs Abnormal Lab Results - Last 24 Hours (Table) 03/16/25 Range/Units 07:19 POC Glucose (mg/dL) 123 H (70-110) mg/dL Assessment and Plan Assessment: Symptomatic cholelithiasis, chronic cholecystitis. Patient will undergo laparoscopic cholecystectomy.
[2025-03-16 08:47] VITALS: TEMP 97
[2025-03-16 09:04] LABS: Glucose,Whole Blood 177 mg/dL (70-110)
--- NOTE | 2025-03-16 09:14 | P.OP ---
Date of Procedure: 03/16/25 Preoperative Diagnosis: Cholelithiasis Postoperative Diagnosis: Cholelithiasis Procedure(s) Performed: Laparoscopic cholecystectomy Anesthesia: JUSTEN Surgeon: Holland Natarajan Estimated Blood Loss (ml): 5 Pathology: other (Gallbladder) Condition: stable Disposition: PACU Description of Procedure: The patient was placed on the operating table. The patient received a general endotracheal tube anesthesia. The patients abdomen was prepped and draped in the usual sterile fashion. Through an infraumbilical stab incision, the fascia of the anterior abdominal wall was grasped with a pair of Kochers and then the Veress needle was placed in the peritoneal cavity. Position of the Veress needle was confirmed with positive drop test. The abdomen was then insufflated. After adequate insufflation, the 10 mm trocar was placed in the peritoneal cavity. Following this the laparoscope was placed in the peritoneal cavity. The patient was placed in the head-up, right side up position and then a 5 mm trocar was placed in the right lateral and right subcostal position under direct visualization. A 8 mm trocar was placed in the epigastric position. The gallbladder was grasped in the fundus and infundibulum. Traction on the gallbladder was placed in the lateral and the cephalad positions. The triangle of Calot was visualized.. The cystic duct was bluntly dissected until the union of the cystic duct and common bile duct was seen. A critical view of safety was achieved. The cystic duct was then divided and sealed with the Harmonic scissors. A PDS Endoloop was then placed throughout the cystic duct stump. The cystic artery divided and sealed with the Harmonic scissors. The gallbladder was then removed from the liver bed using Harmonic scissors. The gallbladder was then extracted through the epigastric port site. Operative field was checked for any bleeding spots and Harmonic scissors was used to coagulate the liver bed. The abdomen was irrigated. The trocars were removed. The skin was closed using interrupted 3-0 Vicryl suture. Dermabond dressing were applied. The patient tolerated the procedure well.
[2025-03-16 09:59] VITALS: RESP 16
[2025-03-16 10:52] VITALS: BP 136/64; PULSE 66
== END 2025-03-16 11:13 | disposition home or self-care (01) ==
LOC: OR 06:06
PROVIDERS: ATTEND Surgery
DX: K80.12 Calculus of gallbladder with acute and chronic cholecystitis without obstruction (principal); I25.10 Atherosclerotic heart disease of native coronary artery without angina pectoris; I10 Essential (primary) hypertension; E78.5 Hyperlipidemia, unspecified; E11.9 Type 2 diabetes mellitus without complications; M79.7 Fibromyalgia; M19.042 Primary osteoarthritis, left hand; Z85.828 Personal history of other malignant neoplasm of skin; Z90.710 Acquired absence of both cervix and uterus; Z82.49 Family history of ischemic heart disease and other diseases of the circulatory system; Z88.1 Allergy status to other antibiotic agents; Z88.2 Allergy status to sulfonamides; Z79.82 Long term (current) use of aspirin; Z79.84 Long term (current) use of oral hypoglycemic drugs; Z79.899 Other long term (current) drug therapy
CPT/HCPCS: 47562; 88304; 88312; J2250; J0330; J1644; J1100; J2710; J0690; J2405; J2003; J3010; J1885; J2704; J1920; J1596